=== PATIENT | male | born 1965 | race Caucasian/White ===

== ENCOUNTER 2016-06-14 11:17 | Inpatient (IN) | payer MEDICAID, MEDICARE ==
[~2016-06-14] VITALS: Ht 188 cm; Wt 78.7 kg
[~2016-06-14 11:17] MED LIST: CYCL-181 PO; DULO60CA PO; ESTRODIAL IM; LAM100T PO; ONDA4TAB5 PO; OXY10CRT PO; PROG200C6 PO; Pantoprazole Sodium Sesquihydr PO; SPIRPOW PO
[2016-06-14 12:10] LABS: Basophils # (auto) 0.3 uL; Basophils % (auto) 1.8 % (0.0-2.0); Eosinophils # (auto) 0 uL; Hematocrit 45.4 % (41.0-53.0); Lymphocytes # (auto) 0.8 uL; Lymphocytes % (auto) 5.2 % (10.0-50.0); Mean Corpuscular Hemoglobin 30.3 pg (28.0-32.0); Mean Corpuscular Hgb Conc. 33.1 g/dL (32.0-36.0); Mean Corpuscular Volume 91.5 fL (80.0-100.0); Mean Platelet Volume 8.4 fL (7.4-10.4); Monocytes # (auto) 0.1 uL; Monocytes % (auto) 0.9 % (0.0-12.0); Neutrophils # (auto) 13.8 uL; Neutrophils % (auto) 92.1 % (37.0-80.0); Platelet Count (auto) 302 10^3/uL (140-450); Red Cell Distribution Width 14.1 % (11.6-16.0); White Blood Cell 14.9 10^3/uL (4.4-10.8)
[2016-06-14 12:31] LABS: BUN/Creatinine Ratio 17.5; Calcium 8.9 mg/dL (8.5-10.1); Potassium 4.4 mmol/L (3.5-5.1)
[2016-06-14 12:33] LABS: Bilirubin, Total 0.4 mg/dL (0.2-1.0); Total Protein 7.3 g/dL (6.4-8.2)
[2016-06-14] MEDS ORDERED: PANTOPRAZOLE SODIUM 40 MG/10 ML VIAL IV STA (12:44)
[2016-06-14] MEDS ORDERED: SODIUM CHLORIDE 0.9% 1,000 ML IVB ONE (12:44)
[2016-06-14] MEDS ORDERED: PROCHLORPERAZINE EDISYLATE 5 MG/ML 2ML VIAL IV ONE (12:45)
[2016-06-14] MEDS ORDERED: SODIUM CHLORIDE 0.9% 1,000 ML IV ONE ×2 (12:45→17:00)
[2016-06-14] MEDS ORDERED: MORPHINE SULFATE 4 MG/ML SYRG IV ONE (12:45)
[2016-06-14 12:52] LABS: Urine Bilirubin Negative (Negative); Urine Color Yellow (Yellow); Urine Glucose Normal (Normal); Urine Mucus FEW (None Seen); Urine Nitrite Negative (Negative); Urine RBC 4 /hpf (0 - 3); Urine Squamous Epithelial Cell FEW /hpf (<5); Urine Urobilinogen Normal (Negative)
[2016-06-14 13:02] LABS: Urine Blood 1+ /uL (Negative); Urine Ketone 4+ (Negative)
[2016-06-14] MEDS ORDERED: LORazepam 2MG/ML-1ML VIAL IV ONE (14:15)
[2016-06-14] MEDS ORDERED: ONDANSETRON HCL 4 MG/2 ML VIAL ONE (16:26)
[2016-06-14] MEDS ORDERED: ONDANSETRON HCL 4 MG/2 ML VIAL IV ONE (16:30)
[2016-06-14] MEDS ORDERED: metroNIDAZOLE 500MG/100ML 100 ML IV ONE (17:00)
[2016-06-14] MEDS ORDERED: NOR5T PO (18:39)
[2016-06-14] MEDS ORDERED: OLAN20TA13 PO (18:39)
[2016-06-14] MEDS ORDERED: TIZA4CAP5 PO (18:39)
[2016-06-14] MEDS ORDERED: THYR30TA PO (18:39)
[2016-06-14] MEDS ORDERED: VORT1TAB3 PO (18:39)
[2016-06-14] MEDS ORDERED: PNEUMOCOCCAL VACC POLYS 25 MCG/0.5 ML VIAL IM ONE (19:00)
[2016-06-14 19:14] VITALS: BP 118/71
[2016-06-14] MEDS ORDERED: HYDROcodone-ACET 5/325MG TAB PO PRN (19:30)
[2016-06-14] MEDS ORDERED: ONDANSETRON HCL 4 MG/2 ML VIAL IV PRN (19:30)
[2016-06-14] MEDS ORDERED: TIZANIDINE 4 MG PO PRN (19:30)
[2016-06-14] MEDS: MORPHINE SULF INJ 2 MG/ML SYRINGE 1ML IV PRN (20:59)
[2016-06-14] MEDS: metroNIDAZOLE 500MG/100ML 100 ML IV SCH (21:25)
[2016-06-14] MEDS ORDERED: PATIENTS OWN MEDICATION (Duloxetine Hcl (Cymbalta) 60 MG) PO SCH (22:00)
[2016-06-14 22:12] VITALS: BP 124/72
[2016-06-15] MEDS: MORPHINE SULF INJ 2 MG/ML SYRINGE 1ML IV PRN ×6 (01:12→22:46)
[2016-06-15] MEDS: PROCHLORPERAZINE EDISYLATE 5 MG/ML 2ML VIAL IV PRN ×4 (03:02→20:13)
[2016-06-15 05:12] VITALS: BP 99/58
[2016-06-15 05:32] LABS: Basophils # (auto) 0 uL; Basophils % (auto) 0.1 % (0.0-2.0); Eosinophils # (auto) 0 uL; Eosinophils % (auto) 0.3 % (0.0-7.0); Hematocrit 44.6 % (41.0-53.0); Hemoglobin 14.8 g/dL (13.5-17.5); Lymphocytes # (auto) 1.5 uL; Lymphocytes % (auto) 8.7 % (10.0-50.0); Mean Corpuscular Hemoglobin 30.5 pg (28.0-32.0); Mean Corpuscular Hgb Conc. 33.2 g/dL (32.0-36.0); Mean Corpuscular Volume 91.9 fL (80.0-100.0); Monocytes # (auto) 0.5 uL; Monocytes % (auto) 2.9 % (0.0-12.0); Neutrophils # (auto) 15.4 uL; Platelet Count (auto) 304 10^3/uL (140-450); Red Cell Distribution Width 14.2 % (11.6-16.0); White Blood Cell 17.5 10^3/uL (4.4-10.8)
[2016-06-15 05:44] LABS: Calcium 8.7 mg/dL (8.5-10.1); Potassium 3.5 mmol/L (3.5-5.1)
[2016-06-15] MEDS: metroNIDAZOLE 500MG/100ML 100 ML IV SCH ×3 (05:52→22:49)
[2016-06-15 09:17] VITALS: BP 100/56
[2016-06-15] MEDS: THYROID 60 MG TAB PO SCH (09:21)
[2016-06-15] MEDS ORDERED: THYROID PO SCH (10:00)
[2016-06-15] MEDS ORDERED: SPIRONOLACTONE 25 MG TAB PO SCH (10:00)
[2016-06-15] MEDS ORDERED: ESTRADIOL 6 MG PO SCH (10:00)
[2016-06-15] MEDS ORDERED: DULoxetine HCL 30 MG CAP PO SCH (10:00)
[2016-06-15] MEDS ORDERED: PANTOPRAZOLE SODIUM 40 MG/10 ML VIAL IV SCH (10:00)
[2016-06-15] MEDS ORDERED: lamoTRIgine 100 MG TAB PO SCH (10:00)
[2016-06-15] MEDS ORDERED: SPIRONOLACTONE 200 MG PO SCH (10:00)
[2016-06-15] MEDS ORDERED: Progesterone Micronized 200 MG PO SCH (10:00)
[2016-06-15] MEDS: VORTIOXETINE 20 MG PO SCH (12:15)
[2016-06-15 12:40] VITALS: BP_SYST 115; BP_SYST 120; BP_DIAS 66; BP_DIAS 70
[2016-06-15] MEDS ORDERED: KEP500T PO (14:25)
[2016-06-15] MEDS ORDERED: ONDA8TAB6 PO (14:25)
[2016-06-15] MEDS ORDERED: cefTRIAXone 1GM/50ML D5W 50 ML IV ONE (15:30)
[2016-06-15] MEDS ORDERED: HYDROcodone-ACET 10/325MG TAB PO PRN (17:00)
[2016-06-15] MEDS ORDERED: Tizanidine Hydrochloride (Zanaflex) 4mg PO PRN (17:00)
[2016-06-15 17:27] VITALS: BP 112/62
[2016-06-15] MEDS ORDERED: OLANZAPINE PO SCH (18:00)
[2016-06-15 22:00] VITALS: BP 105/65
[2016-06-15] MEDS ORDERED: OLANZapine 5 MG TAB PO SCH (22:00)
[2016-06-15] MEDS ORDERED: LEVETIRACETAM 500 MG TAB PO SCH (22:00)
[2016-06-15] MEDS ORDERED: PROGESTERONE MICRONIZED 200 MG PO SCH (22:00)
[2016-06-15] MEDS: SPIRONOLACTONE 25 MG TAB PO SCH (23:07)
[2016-06-16] MEDS: PROCHLORPERAZINE EDISYLATE 5 MG/ML 2ML VIAL IV PRN ×3 (01:56→13:50)
[2016-06-16] MEDS: MORPHINE SULF INJ 2 MG/ML SYRINGE 1ML IV PRN ×3 (04:50→13:50)
[2016-06-16] MEDS: metroNIDAZOLE 500MG/100ML 100 ML IV SCH (05:16)
[2016-06-16 05:30] VITALS: BP 102/69
[2016-06-16 06:29] LABS: Basophils # (auto) 0 uL; Basophils % (auto) 0.2 % (0.0-2.0); Eosinophils # (auto) 0 uL; Eosinophils % (auto) 0.1 % (0.0-7.0); Hematocrit 39.7 % (41.0-53.0); Hemoglobin 13.3 g/dL (13.5-17.5); Lymphocytes # (auto) 1.6 uL; Lymphocytes % (auto) 8.9 % (10.0-50.0); Mean Corpuscular Hemoglobin 30.5 pg (28.0-32.0); Mean Corpuscular Hgb Conc. 33.4 g/dL (32.0-36.0); Mean Corpuscular Volume 91.2 fL (80.0-100.0); Mean Platelet Volume 8.8 fL (7.4-10.4); Monocytes # (auto) 0.8 uL; Monocytes % (auto) 4.7 % (0.0-12.0); Neutrophils # (auto) 15.1 uL; Neutrophils % (auto) 86.1 % (37.0-80.0); Platelet Count (auto) 250 10^3/uL (140-450); White Blood Cell 17.5 10^3/uL (4.4-10.8)
[2016-06-16 06:53] LABS: BUN/Creatinine Ratio 15.4; Calcium 8.4 mg/dL (8.5-10.1); Potassium 3.5 mmol/L (3.5-5.1)
[2016-06-16 09:00] VITALS: BP 131/74
[2016-06-16] MEDS ORDERED: cefTRIAXone 1GM/50ML D5W 50 ML IV SCH (09:00)
[2016-06-16] MEDS ORDERED: DULoxetine HCL 30 MG CAP PO SCH (10:00)
[2016-06-16] MEDS ORDERED: ESTRADIOL 4 MG PO SCH (10:00)
[2016-06-16] MEDS ORDERED: OLANZapine 5 MG TAB PO SCH (10:00)
[2016-06-16] MEDS: THYROID 60 MG TAB PO SCH (10:27)
[2016-06-16] MEDS: SPIRONOLACTONE 25 MG TAB PO SCH (10:27)
[2016-06-16] MEDS: VORTIOXETINE 20 MG PO SCH (10:28)
[2016-06-16] MEDS ORDERED: PANTOPRAZOLE SODIUM 40 MG/10 ML VIAL IV SCH (10:30)
[2016-06-16 13:00] VITALS: BP 97/67
[2016-06-20] MEDS ORDERED: ESTRODIOL IM SCH (10:00)
== END 2016-06-16 16:22 | disposition home or self-care (01) | DRG 251 ==
LOC: ER 11:20 → TELE 11:21 → SUATTDRO 16:47 → WEST WING 17:39 → TELE-WESTW 17:45 → WEST WING 22:09
PROVIDERS: ADMIT Internal Medicine; ATTEND Internal Medicine
DX: R10.9 Unspecified abdominal pain (principal); K90.0 Celiac disease; D72.829 Elevated white blood cell count, unspecified; E78.5 Hyperlipidemia, unspecified; F31.9 Bipolar disorder, unspecified; E03.9 Hypothyroidism, unspecified; F17.210 Nicotine dependence, cigarettes, uncomplicated; F41.9 Anxiety disorder, unspecified; G40.909 Epilepsy, unspecified, not intractable, without status epilepticus; G43.A1 Cyclical vomiting, in migraine, intractable; Z98.1 Arthrodesis status; Z87.442 Personal history of urinary calculi; Z88.5 Allergy status to narcotic agent; Z88.8 Allergy status to other drugs, medicaments and biological substances; Z82.49 Family history of ischemic heart disease and other diseases of the circulatory system; Z90.89 Acquired absence of other organs
CPT/HCPCS: 36415; 74176; 80048; 80053; 81001; 82150; 83690; 83735; 85025; 94761; 96361; 96374; 96375; C9113; J0696; J2405; J3490

== ENCOUNTER 2017-01-04 13:55 | Inpatient (IN) | payer OTHER, MEDICAID ==
[~2017-01-04] VITALS: Ht 188 cm; Wt 76.7 kg
[~2017-01-04 13:55] MED LIST changes: -CYCL-181 PO; +HYDR-4683 PO; +KEP500T PO; -LAM100T PO; +OLAN20TA13 PO; -OXY10CRT PO; +THYR30TA PO; +TIZA4CAP5 PO; +VORT1TAB3 PO
[2017-01-04] MEDS ORDERED: PANTOPRAZOLE 40 MG/10 ML VIAL IV STA (15:10)
[2017-01-04] MEDS ORDERED: SODIUM CHLORIDE 0.9% 1,000 ML IVB ONE (15:10)
[2017-01-04] MEDS ORDERED: ONDANSETRON HCL 4 MG/2 ML VIAL IV ONE (15:15)
[2017-01-04] MEDS ORDERED: HYDROmorphone HCL 2 MG/ML VL IV ONE (15:15)
[2017-01-04 16:03] LABS: Albumin 4.3 g/dL (3.4-5.0); Bilirubin, Total 0.5 mg/dL (0.2-1.0); Calcium 9.5 mg/dL (8.5-10.1); Potassium 4.1 mmol/L (3.5-5.1); Total Protein 8.1 g/dL (6.4-8.2)
[2017-01-04 17:34] LABS: Hematocrit 46.3 % (41.0-53.0); Hemoglobin 15.6 g/dL (13.5-17.5); Mean Corpuscular Hgb Conc. 33.7 g/dL (32.0-36.0); Platelet Count (auto) 243 10^3/uL (140-450); Red Blood Cells 4.88 10^6/uL (4.5-5.90); Red Cell Distribution Width 14.2 % (11.8-14.3); White Blood Cell 14.3 10^3/uL (4.4-10.8)
[2017-01-04 17:36] LABS: Band Neutrophils % (manual) 0; Basophils % (manual) 0 (0.0-2.0); Blast Cells 0; Eosinophils % (manual) 0 (0-7); Metamyelocytes % 0; Myelocytes % 0; Promyelocytes % 0; Reactive Lymphocytes 0
[2017-01-04 18:08] LABS: Lymphocytes % (manual) 6 (10.0-50.0); Monocytes % (manual) 1 (0-12)
[2017-01-04] MEDS ORDERED: ACETAMINOPHEN 325 MG TAB PO PRN (19:15)
[2017-01-04] MEDS ORDERED: NITROGLYCERIN 0.4 MG SL TAB SL PRN (19:15)
[2017-01-04] MEDS ORDERED: MORPHINE SULFATE 10 MG/ML INJ 1ML SDV IV PRN ×2 (19:15)
[2017-01-04] MEDS ORDERED: TEMAZEPAM 15 MG CAP PO PRN (19:15)
[2017-01-04] MEDS ORDERED: DOCUSATE SOD 100 MG CAP PO PRN (19:15)
[2017-01-04] MEDS ORDERED: SODIUM CHLORIDE 0.9% 1,000 ML IV ONE (19:30)
[2017-01-04] MEDS ORDERED: LORazepam 2MG/ML-1ML VIAL IV PRN (19:30)
[2017-01-04] MEDS ORDERED: PATIENTS OWN MEDICATION IM SCH (19:30)
[2017-01-04] MEDS ORDERED: cefTRIAXone 1GM/50ML D5W 50 ML IV ONE (19:45)
[2017-01-04] MEDS ORDERED: DEXTROSE (50%) 50ML SYRG IV PRN (19:45)
[2017-01-04 21:55] VITALS: BP_SYST 130; BP_SYST 97; BP_DIAS 62; BP_DIAS 91
[2017-01-04] MEDS ORDERED: ZANAFLEX 4 MG PO PRN (22:00)
[2017-01-04] MEDS ORDERED: LEVETIRACETAM 500 MG TAB PO SCH (22:00)
[2017-01-04] MEDS: PROGESTERONE 200 MG PO SCH (22:00)
[2017-01-04] MEDS: ABILIFY 5MG PO SCH (22:00)
[2017-01-04] MEDS: InsuLIN REG 1unit/0.01ml Soln (100units/ml) SC SCH (22:00)
[2017-01-04] MEDS: ACCU-CHEK COMFORT CURVE STRIP VI SCH (22:00)
[2017-01-04] MEDS: FAMOTIDINE (10MG/ML) 2ML VL IV SCH (22:50)
[2017-01-04] MEDS: ONDANSETRON HCL 4 MG/2 ML VIAL IV PRN (22:50)
[2017-01-04] MEDS: metroNIDAZOLE 500MG/100ML 100 ML IV SCH (22:50)
[2017-01-04] MEDS: SUCRALFATE 1 GM TAB PO SCH (22:51)
[2017-01-04] MEDS: SODIUM CHLORIDE 0.9% 1,000 ML IV SCH (23:01)
[2017-01-05] MEDS: SODIUM CHLORIDE 0.9% 1,000 ML IV SCH ×3 (02:19→20:24)
[2017-01-05] MEDS: ACCU-CHEK COMFORT CURVE STRIP VI SCH ×2 (05:14→11:44)
[2017-01-05] MEDS: SPIRONOLACTONE 25 MG TAB PO SCH ×2 (05:14→17:04)
[2017-01-05] MEDS: metroNIDAZOLE 500MG/100ML 100 ML IV SCH ×2 (05:14→13:45)
[2017-01-05] MEDS: SUCRALFATE 1 GM TAB PO SCH ×4 (05:14→22:03)
[2017-01-05] MEDS: InsuLIN REG 1unit/0.01ml Soln (100units/ml) SC SCH ×2 (05:14→11:30)
[2017-01-05 05:30] VITALS: BP 93/47
[2017-01-05] MEDS: ONDANSETRON HCL 4 MG/2 ML VIAL IV PRN ×2 (05:46→20:35)
[2017-01-05] MEDS: HYDROcodone-ACET 5/325MG TAB PO PRN ×3 (05:47→20:36)
[2017-01-05 05:52] LABS: Basophils # (auto) 0.1 uL; Basophils % (auto) 0.8 % (0.0-2.0); Eosinophils # (auto) 0 uL; Eosinophils % (auto) 0.5 % (0.0-7.0); Hematocrit 38.1 % (41.0-53.0); Hemoglobin 12.8 g/dL (13.5-17.5); Lymphocytes # (auto) 2.4 uL; Lymphocytes % (auto) 26.5 % (10.0-50.0); Mean Corpuscular Hgb Conc. 33.7 g/dL (32.0-36.0); Mean Corpuscular Volume 94.7 fL (80.0-100.0); Monocytes # (auto) 0.5 uL; Monocytes % (auto) 5.9 % (0.0-12.0); Neutrophils % (auto) 66.3 % (37.0-80.0); Nucleated Red Blood Cells % 0.1 %; Platelet Count (auto) 192 10^3/uL (140-450); Red Blood Cells 4.02 10^6/uL (4.5-5.90); Red Cell Distribution Width 14.6 % (11.8-14.3)
[2017-01-05 06:22] LABS: Potassium 3.8 mmol/L (3.5-5.1)
[2017-01-05 06:35] LABS: Albumin 3.1 g/dL (3.4-5.0); BUN/Creatinine Ratio 18.6; Calcium 7.9 mg/dL (8.5-10.1)
[2017-01-05 06:38] LABS: Bilirubin, Total 0.4 mg/dL (0.2-1.0); Total Protein 5.7 g/dL (6.4-8.2)
[2017-01-05 06:48] LABS: Urine Bacteria NONE SEEN /hpf (None Seen); Urine Blood Negative /uL (Negative); Urine Mucus FEW (None Seen); Urine Specific Gravity 1.028 (1.001-1.035); Urine WBC 1 /hpf (0 - 3)
[2017-01-05 08:00] VITALS: BP 93/54
[2017-01-05] MEDS: FAMOTIDINE (10MG/ML) 2ML VL IV SCH (08:51)
[2017-01-05] MEDS: THYROID 60 MG TAB PO SCH (08:51)
[2017-01-05] MEDS: DULoxetine HCL 30 MG CAP PO SCH (08:52)
[2017-01-05] MEDS: ABILIFY 5MG PO SCH (08:52)
[2017-01-05] MEDS: MULTIPLE VITAMIN TAB PO SCH (08:52)
[2017-01-05] MEDS ORDERED: cefTRIAXone 1GM/50ML D5W 50 ML IV SCH (09:00)
[2017-01-05] MEDS ORDERED: PANTOPRAZOLE 40 MG/10 ML VIAL IV SCH (10:00)
[2017-01-05] MEDS ORDERED: MORPHINE SULFATE 10 MG/ML INJ 1ML SDV IV PRN (14:45)
[2017-01-05 15:02] VITALS: BP 105/72
[2017-01-05] MEDS ORDERED: ARIP1TAB PO (16:20)
[2017-01-05] MEDS ORDERED: TEMA30CA PO (16:20)
[2017-01-05] MEDS ORDERED: VARE1TAB PO (16:20)
[2017-01-05] MEDS ORDERED: DIAZ10TA3 PO (16:20)
[2017-01-05] MEDS ORDERED: LORazepam 2MG/ML-1ML VIAL IV PRN (17:15)
[2017-01-05 17:38] VITALS: BP_SYST 103; BP_SYST 143; BP_DIAS 61; BP_DIAS 66
[2017-01-05 22:00] VITALS: BP 96/60
[2017-01-05] MEDS: CHANTIX 1MG PO SCH (22:00)
[2017-01-05] MEDS: PROGESTERONE 200 MG PO SCH (22:00)
[2017-01-05] MEDS: LEVETIRACETAM 500 MG TAB PO SCH (22:04)
[2017-01-05] MEDS: PANTOPRAZOLE 40 MG TAB PO SCH (22:04)
[2017-01-06] MEDS: SODIUM CHLORIDE 0.9% 1,000 ML IV SCH (04:37)
[2017-01-06 05:00] VITALS: BP 91/60
[2017-01-06] MEDS: SPIRONOLACTONE 25 MG TAB PO SCH (05:47)
[2017-01-06] MEDS: SUCRALFATE 1 GM TAB PO SCH ×2 (06:45→11:52)
[2017-01-06] MEDS: HYDROcodone-ACET 5/325MG TAB PO PRN ×2 (06:51→14:27)
[2017-01-06 07:50] VITALS: BP 105/65
[2017-01-06 08:29] VITALS: BP 97/59
[2017-01-06] MEDS: PANTOPRAZOLE 40 MG TAB PO SCH (08:51)
[2017-01-06] MEDS: THYROID 60 MG TAB PO SCH (08:51)
[2017-01-06] MEDS: MULTIPLE VITAMIN TAB PO SCH (08:51)
[2017-01-06] MEDS: LEVETIRACETAM 500 MG TAB PO SCH (08:51)
[2017-01-06] MEDS: DULoxetine HCL 30 MG CAP PO SCH (08:51)
[2017-01-06] MEDS: CHANTIX 1MG PO SCH (10:00)
[2017-01-06] MEDS ORDERED: LORazepam 0.5 MG TAB PO PRN (10:00)
[2017-01-06] MEDS ORDERED: KEP500T PO (10:57)
[2017-01-06 13:00] VITALS: BP 86/57
[2017-01-06 17:00] VITALS: BP 93/60
[2017-01-06 17:39] VITALS: BP 129/74
== END 2017-01-06 18:49 | disposition home or self-care (01) | DRG 866 ==
LOC: EDBD 13:55 → ER 13:55 → EDSEX 13:55 → TELE 13:56 → TELE-EAST 21:25 → EAST 21:25 → TELE-EAST 01-05 16:34
PROVIDERS: ADMIT Internal Medicine; ATTEND Internal Medicine
DX: B34.9 Viral infection, unspecified (principal); E03.9 Hypothyroidism, unspecified; G40.89 Other seizures; K29.70 Gastritis, unspecified, without bleeding; E78.5 Hyperlipidemia, unspecified; E86.0 Dehydration; F41.9 Anxiety disorder, unspecified; N18.2 Chronic kidney disease, stage 2 (mild); F12.90 Cannabis use, unspecified, uncomplicated; G89.29 Other chronic pain; M54.5 Low back pain; F31.9 Bipolar disorder, unspecified; F17.210 Nicotine dependence, cigarettes, uncomplicated; Z79.899 Other long term (current) drug therapy; Z87.442 Personal history of urinary calculi; Z82.49 Family history of ischemic heart disease and other diseases of the circulatory system; Z98.1 Arthrodesis status; Z88.8 Allergy status to other drugs, medicaments and biological substances
CPT/HCPCS: 36415; 70551; 74176; 76705; 80053; 81001; 82150; 82962; 83036; 83605; 83690; 83735; 84443; 85007; 85025; 85027; 87040; 87086; 94761; 95819; 96361; 96374; 96375; C9113; J0696; J2405; J3490

== ENCOUNTER → 2018-01-13 | Outpatient (CLI) | payer OTHER, MEDICAID ==
[~2018-01-13] MED LIST changes: +ARIP1TAB PO; +DIAZ10TA3 PO; +TEMA30CA PO; +TIZA4CAP PO; -TIZA4CAP5 PO; +VARE1TAB PO
== END | disposition home or self-care (01) ==
LOC: RT 08:39
PROVIDERS: ATTEND Internal Medicine Pulmonary Disease
DX: J43.9 Emphysema, unspecified (principal)
CPT/HCPCS: 94010; 94640

== ENCOUNTER 2021-10-09 03:15 | Inpatient (IN) | payer OTHER, MEDICAID ==
[~2021-10-09] VITALS: Ht 188 cm; Wt 94.7 kg
[~2021-10-09 03:15] MED LIST changes: +ARIP10TA30 PO; -ARIP1TAB PO; -HYDR-4683 PO; +HYDR-4833 PO; +OLAN20TA PO; -OLAN20TA13 PO; +ONDA-144 PO; -ONDA4TAB5 PO; +PROG1CAP2 PO; -PROG200C6 PO
[2021-10-09 04:24] LABS: Basophils # (auto) 0.1 10 ^3/uL (0-0.2); Basophils % (auto) 0.9 % (0.0-2.0); Eosinophils # (auto) 0 10 ^3/uL (0-0.8); Eosinophils % (auto) 0.1 % (0.0-7.0); Hematocrit 43.5 % (41.0-53.0); Hemoglobin 14.4 g/dL (13.5-17.5); Lymphocytes # (auto) 1.9 10 ^3/uL (0.4-5.4); Lymphocytes % (auto) 14.1 % (10.0-50.0); Mean Corpuscular Hemoglobin 28.5 pg (28.0-32.0); Mean Corpuscular Hgb Conc. 33.2 g/dL (32.0-36.0); Monocytes # (auto) 0.7 10 ^3/uL (0-1.3); Monocytes % (auto) 5.4 % (0.0-12.0); Neutrophils # (auto) 10.5 10 ^3/uL (1.6-8.6); Neutrophils % (auto) 79.5 % (37.0-80.0); Red Blood Cells 5.05 10^6/uL (4.5-5.90); Red Cell Distribution Width 14.8 % (11.8-14.3); White Blood Cell 13.2 10^3/uL (4.4-10.8)
[2021-10-09 04:40] LABS: Albumin 4.1 g/dL (3.4-5.0); BUN/Creatinine Ratio 20.6; Calcium 9.2 mg/dL (8.5-10.1)
[2021-10-09 04:42] LABS: Bilirubin, Total 0.5 mg/dL (0.2-1.0); Total Protein 7.8 g/dL (6.4-8.2)
[2021-10-09] MEDS ORDERED: ONDANSETRON HCL 4 MG/2 ML VIAL IV ONE ×2 (07:45→11:15)
[2021-10-09] MEDS ORDERED: SODIUM CHLORIDE 0.9% 1,000 ML IVB ONE (07:45)
[2021-10-09] MEDS ORDERED: PANTOPRAZOLE 40 MG/10 ML VIAL INJ IV ONE ×2 (07:45→13:30)
[2021-10-09] MEDS ORDERED: POTASSIUM CHL 20 Meq TABLET PO ONE (09:00)
[2021-10-09] MEDS ORDERED: POTASSIUM CHL 20MEQ/100ML 100 ML IV ONE (09:00)
[2021-10-09] MEDS ORDERED: MORPHINE SULFATE 4 MG/ML SYR/VIAL IV ONE (11:15)
[2021-10-09 12:22] LABS: Urine Bacteria FEW /hpf (None Seen); Urine Blood 2+ /uL (Negative); Urine Mucus FEW (None Seen); Urine Specific Gravity 1.028 (1.001-1.035); Urine WBC 1 /hpf (0 - 3)
[2021-10-09 12:35] LABS: Alcohol, Urine < 3.0 mg/dL (0-10); Amphetamine Screen, Urine NEGATIVE (NEGATIVE); Barbiturate Scree,Urine NEGATIVE (NEGATIVE); Benzodiazephine Screen, Urine NEGATIVE (NEGATIVE); Cannabinoid Screen, Urine POSITIVE (NEGATIVE); Cocaine Screen, Urine NEGATIVE (NEGATIVE); Opiate Scree,Urine POSITIVE (NEGATIVE); Phencyclidine Screen, Urine NEGATIVE (NEGATIVE)
[2021-10-09] MEDS ORDERED: cefTRIAXone 1GM/50ML D5W 50 ML IV ONE (13:30)
[2021-10-09 13:51] LABS: Magnesium 2.4 mg/dL (1.6-2.6)
[2021-10-09 14:35] LABS: Calcium 8.2 mg/dL (8.5-10.1); Potassium 3.6 mmol/L (3.5-5.1)
[2021-10-09] MEDS: SODIUM CHLORIDE 0.9% 1,000 ML IV SCH ×2 (14:46→23:56)
[2021-10-09] MEDS: ONDANSETRON HCL 4 MG/2 ML VIAL IV PRN (18:05)
[2021-10-09] MEDS ORDERED: levETIRAcetam 500 MG/5ML INJ IV ONE ×2 (23:18→23:21)
[2021-10-09] MEDS: MORPHINE SULFATE INJ 2 MG/ml SYRG IV PRN (23:45)
[2021-10-10] MEDS: ONDANSETRON HCL 4 MG/2 ML VIAL IV PRN ×2 (05:26→11:58)
[2021-10-10] MEDS: MORPHINE SULFATE INJ 2 MG/ml SYRG IV PRN ×2 (05:32→11:59)
[2021-10-10] MEDS: SODIUM CHLORIDE 0.9% 1,000 ML IV SCH ×2 (06:37→22:18)
[2021-10-10 07:29] LABS: Basophils # (auto) 0.1 10 ^3/uL (0-0.2); Basophils % (auto) 1.5 % (0.0-2.0); Eosinophils # (auto) 0.1 10 ^3/uL (0-0.8); Eosinophils % (auto) 0.9 % (0.0-7.0); Hematocrit 38.1 % (41.0-53.0); Hemoglobin 12.6 g/dL (13.5-17.5); Lymphocytes # (auto) 1.7 10 ^3/uL (0.4-5.4); Lymphocytes % (auto) 26.3 % (10.0-50.0); Mean Corpuscular Hemoglobin 28.9 pg (28.0-32.0); Mean Corpuscular Hgb Conc. 33.2 g/dL (32.0-36.0); Monocytes # (auto) 0.5 10 ^3/uL (0-1.3); Monocytes % (auto) 7.2 % (0.0-12.0); Neutrophils # (auto) 4.1 10 ^3/uL (1.6-8.6); Neutrophils % (auto) 64.1 % (37.0-80.0); Red Blood Cells 4.38 10^6/uL (4.5-5.90); Red Cell Distribution Width 14.7 % (11.8-14.3); White Blood Cell 6.4 10^3/uL (4.4-10.8)
[2021-10-10 07:49] LABS: Albumin 3.3 g/dL (3.4-5.0); Calcium 8.3 mg/dL (8.5-10.1); Potassium 3.8 mmol/L (3.5-5.1)
[2021-10-10 07:54] LABS: BUN/Creatinine Ratio 15.2; Bilirubin, Total 0.5 mg/dL (0.2-1.0); Total Protein 6.2 g/dL (6.4-8.2)
[2021-10-10] MEDS: NICOTINE 7MG/24HR TOPICAL PATCH TD SCH (10:00)
[2021-10-10] MEDS: PANTOPRAZOLE 40 MG/10 ML VIAL INJ IV SCH (10:37)
[2021-10-10] MEDS: cefTRIAXone 1GM/50ML D5W 50 ML IV SCH (10:37)
[2021-10-10] MEDS: ENOXAPARIN SOD 40 MG/0.4 ML SYRINGE SC SCH (10:38)
[2021-10-10] MEDS ORDERED: HYDROcodone-ACET 10/325MG TAB PO PRN (12:15)
[2021-10-10] MEDS ORDERED: GABA300C10 PO (21:36)
[2021-10-10] MEDS ORDERED: TRAZ1TAB12 PO (21:36)
[2021-10-10] MEDS ORDERED: ARIP10TA PO (21:36)
[2021-10-10 22:00] VITALS: BP 108/77
[2021-10-10] MEDS ORDERED: BACL10TA PO (22:23)
[2021-10-10] MEDS ORDERED: BACLOFEN 10 MG TAB PO SCH (23:52)
[2021-10-11] MEDS ORDERED: GABAPENTIN 300 MG CAP PO ONE
[2021-10-11] MEDS ORDERED: traZODone HCL 50 MG TAB PO ONE
[2021-10-11] MEDS ORDERED: DULoxetine HCL 30 MG CAP PO ONE
[2021-10-11] MEDS ORDERED: BACLOFEN 10 MG TAB PO ONE
[2021-10-11] MEDS: SODIUM CHLORIDE 0.9% 1,000 ML IV SCH ×2 (00:20→10:27)
[2021-10-11 05:00] VITALS: BP 106/78
[2021-10-11] MEDS: GABAPENTIN 300 MG CAP PO SCH ×2 (06:44→10:29)
[2021-10-11 09:00] VITALS: BP 118/79
[2021-10-11] MEDS: NICOTINE 7MG/24HR TOPICAL PATCH TD SCH (10:00)
[2021-10-11] MEDS ORDERED: BACLOFEN 10 MG TAB PO SCH (10:00)
[2021-10-11] MEDS: cefTRIAXone 1GM/50ML D5W 50 ML IV SCH (10:27)
[2021-10-11] MEDS: ENOXAPARIN SOD 40 MG/0.4 ML SYRINGE SC SCH (10:28)
[2021-10-11] MEDS: PANTOPRAZOLE 40 MG/10 ML VIAL INJ IV SCH (10:28)
[2021-10-11] MEDS: ONDANSETRON HCL 4 MG/2 ML VIAL IV PRN (10:44)
[2021-10-11] MEDS: MORPHINE SULFATE INJ 2 MG/ml SYRG IV PRN (10:44)
[2021-10-11 17:18] VITALS: BP 126/77
[2021-10-11] MEDS ORDERED: DULoxetine HCL 30 MG CAP PO SCH (22:00)
[2021-10-11] MEDS ORDERED: traZODone HCL 50 MG TAB PO SCH (22:00)
== END 2021-10-11 16:20 | disposition home or self-care (01) | DRG 392 ==
LOC: EDSEX 03:15 → ER 03:15 → EDBD 03:15 → OVERFLOW 13:24 → CENTRAL 10-10 16:07
PROVIDERS: ADMIT Registered Nurse; ATTEND Internal Medicine
DX: K52.9 Noninfective gastroenteritis and colitis, unspecified (principal); N39.0 Urinary tract infection, site not specified; K29.70 Gastritis, unspecified, without bleeding; E78.5 Hyperlipidemia, unspecified; E86.0 Dehydration; E03.9 Hypothyroidism, unspecified; R82.4 Acetonuria; R31.9 Hematuria, unspecified; E87.6 Hypokalemia; F17.210 Nicotine dependence, cigarettes, uncomplicated; F41.9 Anxiety disorder, unspecified; G89.29 Other chronic pain; Z20.822 Contact with and (suspected) exposure to COVID-19; I10 Essential (primary) hypertension; J44.9 Chronic obstructive pulmonary disease, unspecified; K44.9 Diaphragmatic hernia without obstruction or gangrene; K90.0 Celiac disease; R56.9 Unspecified convulsions; Z82.49 Family history of ischemic heart disease and other diseases of the circulatory system; Z87.442 Personal history of urinary calculi; Z88.8 Allergy status to other drugs, medicaments and biological substances
CPT/HCPCS: 36415; 74176; 80048; 80053; 80061; 80307; 81001; 82542; 83036; 83735; 85025; 87086; 96361; 96365; 96375; 96376; C9113; G0378; J0696; J2405; J3480; J7060

== ENCOUNTER 2022-05-09 09:23 | Emergency (ER) | payer OTHER, MEDICAID ==
[~2022-05-09 09:23] MED LIST changes: +ARIP10TA PO; -ARIP10TA30 PO; +BACL10TA PO; -DIAZ10TA3 PO; +GABA300C10 PO; -OLAN20TA PO; -SPIRPOW PO; -TEMA30CA PO; -THYR30TA PO; -TIZA4CAP PO; +TRAZ1TAB12 PO; -VARE1TAB PO; -VORT1TAB3 PO
[2022-05-09 09:52] LABS: Basophils # (auto) 0.1 10 ^3/uL (0-0.2); Basophils % (auto) 0.9 % (0.0-2.0); Eosinophils # (auto) 0 10 ^3/uL (0-0.8); Eosinophils % (auto) 0.1 % (0.0-7.0); Hematocrit 46.7 % (41.0-53.0); Hemoglobin 15.7 g/dL (13.5-17.5); Lymphocytes # (auto) 1.4 10 ^3/uL (0.4-5.4); Lymphocytes % (auto) 11.7 % (10.0-50.0); Mean Corpuscular Hemoglobin 29.1 pg (28.0-32.0); Mean Corpuscular Hgb Conc. 33.6 g/dL (32.0-36.0); Mean Corpuscular Volume 86.7 fL (80.0-100.0); Monocytes # (auto) 0.9 10 ^3/uL (0-1.3); Monocytes % (auto) 7.7 % (0.0-12.0); Neutrophils # (auto) 9.7 10 ^3/uL (1.6-8.6); Neutrophils % (auto) 79.6 % (37.0-80.0); Red Blood Cells 5.38 10^6/uL (4.5-5.90); Red Cell Distribution Width 13.9 % (11.8-14.3); White Blood Cell 12.1 10^3/uL (4.4-10.8)
[2022-05-09 10:22] LABS: Calcium 9.3 mg/dL (8.5-10.1); Potassium 3.5 mmol/L (3.5-5.1)
[2022-05-09 10:25] LABS: BUN/Creatinine Ratio 17.5; Bilirubin, Total 0.7 mg/dL (0.2-1.0); Total Protein 7.4 g/dL (6.4-8.2)
[2022-05-09] MEDS ORDERED: SODIUM CHLORIDE 0.9% 1,000 ML IV ONE (11:00)
[2022-05-09] MEDS ORDERED: SODIUM CHLORIDE 0.9% 1,000 ML IVB ONE (11:00)
[2022-05-09] MEDS ORDERED: PANTOPRAZOLE 40mg/50ML NS AE 50 ML IV ONE (11:00)
[2022-05-09 13:24] VITALS: BP 122/72
== END 2022-05-09 13:26 | disposition home or self-care (01) ==
LOC: EDBD 09:23 → EDSEX 09:23 → ER 09:23
DX: K29.70 Gastritis, unspecified, without bleeding (principal); J44.9 Chronic obstructive pulmonary disease, unspecified; E78.5 Hyperlipidemia, unspecified; F17.210 Nicotine dependence, cigarettes, uncomplicated; Z90.89 Acquired absence of other organs; Z79.899 Other long term (current) drug therapy; Z88.8 Allergy status to other drugs, medicaments and biological substances
CPT/HCPCS: 36415; 74176; 80053; 83690; 84484; 85025; 96365; 99285; J7030

== ENCOUNTER 2023-07-05 16:56 | Inpatient (IN) | payer OTHER, MEDICAID ==
[~2023-07-05] VITALS: Ht 188 cm; Wt 91.7 kg
[~2023-07-05 16:56] MED LIST changes: -DULO60CA PO; +DULO60CA41 PO; +GABA-1250 PO; -GABA300C10 PO; -PROG1CAP2 PO; +PROG200C21 PO
[2023-07-05 22:06] LABS: Basophils # (auto) 0.2 10 ^3/uL (0-0.2); Basophils % (auto) 1.5 % (0.0-2.0); Eosinophils # (auto) 0.1 10 ^3/uL (0-0.8); Eosinophils % (auto) 0.7 % (0.0-7.0); Hematocrit 43.1 % (36.0-46.0); Hemoglobin 14.2 g/dL (12.2-16.2); Lymphocytes % (auto) 15.3 % (10.0-50.0); Mean Corpuscular Hemoglobin 28.3 pg (28.0-32.0); Mean Corpuscular Hgb Conc. 32.9 g/dL (32.0-36.0); Mean Corpuscular Volume 85.9 fL (80.0-100.0); Monocytes # (auto) 0.5 10 ^3/uL (0-1.3); Monocytes % (auto) 3.8 % (0.0-12.0); Neutrophils # (auto) 10.2 10 ^3/uL (1.6-8.6); Neutrophils % (auto) 78.7 % (37.0-80.0); Red Blood Cells 5.01 10^6/uL (4.0-5.20); White Blood Cell 12.9 10^3/uL (4.4-10.8)
[2023-07-05 22:37] LABS: Alanine Aminotransferase 13 U/L (7-40); Albumin 4.7 g/dL (3.2-4.8); Alkaline Phosphatase 80 U/L (46-116); Anion Gap 6 (5-15); Aspartate Aminotransferase 22 U/L (13-40); BUN/Creatinine Ratio 5.9 (10.0-20.0); Bilirubin, Total 0.3 mg/dL (0.2-1.0); Blood Urea Nitrogen 7 mg/dL (9-23); Calcium 10.2 mg/dL (8.5-10.1); Carbon Dioxide 28 mmol/L (20-30); Chloride 104 mmol/L (98-107); Glucose 115 mg/dL (74-106); Potassium 3.9 mmol/L (3.5-5.1); Sodium 138 mmol/L (136-145); Total Protein 7.5 g/dL (5.7-8.2)
[2023-07-05] MEDS ORDERED: ACETAMINOPHEN 325 MG TAB PO PRN (23:30)
[2023-07-05] MEDS ORDERED: TRAZODONE HCL 300 MG PO SCH (23:30)
[2023-07-05] MEDS ORDERED: HYDROcodone-ACET 5/325MG TAB PO PRN (23:30)
[2023-07-05] MEDS: SODIUM CHLORIDE 0.9% 1,000 ML IV SCH (23:30)
[2023-07-05] MEDS ORDERED: PATIENTS OWN MEDICATION (Duloxetine Hcl (Cymbalta) 60 MG) PO SCH (23:30)
[2023-07-05] MEDS ORDERED: ARIPIPRAZOLE 10 MG PO SCH (23:30)
[2023-07-05] MEDS ORDERED: NITROGLYCERIN 0.4 MG SL TAB SL PRN (23:30)
[2023-07-05] MEDS: SODIUM CHLORIDE 0.9% 1,000 ML IV ONE (23:30)
[2023-07-05] MEDS ORDERED: DOCUSATE SOD 100 MG CAP PO PRN (23:30)
[2023-07-05] MEDS ORDERED: MORPHINE SULFATE INJ 2 MG/ml SYRG IV PRN (23:30)
[2023-07-05 23:33] VITALS: PULSE 70; RESP 16; O2SAT 98
[2023-07-05] MEDS ORDERED: ATOR-47 PO (23:45)
[2023-07-05 23:52] VITALS: BP 124/90; PULSE 70; RESP 16; TEMP 97.8; O2SAT 98
[2023-07-05] MEDS: KETOROLAC TROMETH 30 MG/ML 1ML VIAL IM ONE (23:55)
[2023-07-06] VITALS (11 sets, daily range): BP systolic 96–152; BP diastolic 59–96; PULSE 67–90; RESP 16–21; TEMP 97.2–98.9; O2SAT 94–100
[2023-07-06] MEDS ORDERED: ALBUTEROL SULF 2.5 MG/0.5ML(0.5%) NEB SOLN NEB PRN
[2023-07-06] MEDS ORDERED: IPRATROPIUM BROM 0.5 MG/2.5ML INH SOL NEB PRN
[2023-07-06] MEDS: ONDANSETRON HCL 4 MG/2 ML VIAL IV PRN (00:26)
[2023-07-06] MEDS: MORPHINE SULFATE INJ 2 MG/ml SYRG IV PRN (00:42)
[2023-07-06] MEDS: GABAPENTIN 300 MG CAP PO SCH (06:00)
[2023-07-06 08:00] LABS: Hematocrit 42.1 % (36.0-46.0); Hemoglobin 13.6 g/dL (12.2-16.2); Mean Corpuscular Hemoglobin 27.7 pg (28.0-32.0); Mean Corpuscular Hgb Conc. 32.4 g/dL (32.0-36.0); Mean Corpuscular Volume 85.6 fL (80.0-100.0); Red Blood Cells 4.92 10^6/uL (4.0-5.20); Red Cell Distribution Width 14.5 % (11.8-14.3); White Blood Cell 13.2 10^3/uL (4.4-10.8)
[2023-07-06 08:01] LABS: Alanine Aminotransferase 12 U/L (7-40); Alkaline Phosphatase 77 U/L (46-116); Anion Gap 8 (5-15); Aspartate Aminotransferase 16 U/L (13-40); BUN/Creatinine Ratio 5.9 (10.0-20.0); Blood Urea Nitrogen 7 mg/dL (9-23); Carbon Dioxide 25 mmol/L (20-30); Chloride 106 mmol/L (98-107); Glucose 160 mg/dL (74-106); LDL Cholesterol 166 mg/dL (< 100); Sodium 139 mmol/L (136-145); Triglycerides 131 mg/dL (< 150)
[2023-07-06 08:02] LABS: Albumin 4.5 g/dL (3.2-4.8); Bilirubin, Total 0.4 mg/dL (0.2-1.0); Cholesterol 225 mg/dL (< 200); HDL Cholesterol 47 mg/dL (40-59); Total Protein 7.1 g/dL (5.7-8.2)
[2023-07-06 09:17] LABS: Basophils % (manual) 0 (0.0-2.0); Blast Cells 0; Eosinophils % (manual) 0 (0-7); Metamyelocytes % 0; Myelocytes % 0; Promyelocytes % 0; Reactive Lymphocytes 0
[2023-07-06] MEDS: PANTOPRAZOLE 40 MG TAB PO SCH (09:38)
[2023-07-06] MEDS ORDERED: PANTOPRAZOLE SODIUM SESQUIHYDR PO SCH (10:00)
[2023-07-06] MEDS ORDERED: PATIENTS OWN MEDICATION (Atorvastatin Calcium 1 TAB) PO SCH (10:00)
[2023-07-06 11:05] LABS: Band Neutrophils % (manual) 3; Lymphocytes % (manual) 5 (10.0-50.0); Monocytes % (manual) 6 (0-12); Platelet Estimate Adequate
[2023-07-06] MEDS ORDERED: MORPHINE SULFATE INJ 2 MG/ml SYRG IV PRN (12:30)
[2023-07-06] MEDS: oxyCODONE ER 10 MG TAB PO ONE (13:45)
[2023-07-06] MEDS: METOCLOPRAMIDE HCL 5MG/ml INJ 2ml VIAL IV PRN (15:40)
[2023-07-06] MEDS ORDERED: OXY10CRT PO (17:28)
[2023-07-06] MEDS: DULoxetine HCL 30 MG CAP PO SCH (21:50)
[2023-07-06] MEDS: oxyCODONE ER 10 MG TAB PO SCH (21:51)
[2023-07-06] MEDS: ATORVASTATIN 20 MG TAB PO SCH (21:51)
[2023-07-07 01:06] VITALS: BP 98/65; PULSE 89; RESP 18; TEMP 98.8; O2SAT 93
[2023-07-07 05:01] VITALS: BP 109/75; PULSE 72; RESP 18; TEMP 99.1; O2SAT 94
[2023-07-07 07:17] VITALS: O2SAT 96
[2023-07-07 08:00] VITALS: BP 107/70; PULSE 60; PULSE 75; RESP 17; TEMP 98.1; O2SAT 100
[2023-07-07 09:00] VITALS: BP 107/70; PULSE 60; RESP 17; TEMP 98.1; O2SAT 94
[2023-07-07 10:00] VITALS: O2SAT 94
== END 2023-07-07 11:55 | disposition home or self-care (01) | DRG 316 ==
LOC: ER 16:56 → EDBD 16:56 → EDSEX 16:56 → TELE 23:39 → TELE-CENTR 07-06 02:56
PROVIDERS: ADMIT Internal Medicine Geriatric Medicine; ATTEND Internal Medicine Geriatric Medicine
DX: I95.9 Hypotension, unspecified (principal); M54.50 Low back pain, unspecified; D72.829 Elevated white blood cell count, unspecified; F32.A Depression, unspecified; F41.9 Anxiety disorder, unspecified; J44.9 Chronic obstructive pulmonary disease, unspecified; E78.5 Hyperlipidemia, unspecified; G89.4 Chronic pain syndrome; G40.909 Epilepsy, unspecified, not intractable, without status epilepticus; F17.210 Nicotine dependence, cigarettes, uncomplicated; E03.9 Hypothyroidism, unspecified; Z87.442 Personal history of urinary calculi; Z79.899 Other long term (current) drug therapy
CPT/HCPCS: 36415; 70450; 71045; 80053; 80061; 83036; 83880; 84443; 84484; 85007; 85025; 85027; 85379; 96360; 96372; 97163; G0378; J1885; J2405

== ENCOUNTER 2024-09-09 15:49 | Emergency (ER) | payer OTHER, MEDICAID ==
[~2024-09-09] VITALS: Ht 188 cm; Wt 79.0 kg
[~2024-09-09 15:49] MED LIST changes: +ATOR-47 PO; -HYDR-4833 PO; +OXY10CRT PO
--- NOTE | 2024-09-09 16:58 | ED.PDOC ---
HPI Comments jose Bowen HPI: Poor Historian. Biological male Past Medical History: Past Surgical History: HPI: 58y F who presents to the ED via EMS for chief complaint of low blood pressure - pt states she woke up this AM with associated dizziness - pt states she has history of low blood pressure and states she often checks her blood pressure values - pt states this AM BP of 72/55 and pt called EMS - EMS arrived on scene and noted BP was 87/70's with Accu check of 80 and pt given 300 ml of fluids with 15g of glucose en route to the ED - pt states she normally takes her midodrine for her low blood pressure but states she is normally complaint but states she has not taken it earlier this AM - pt now in the ED, is alert and oriented and has noted stable vitals with BP of 102/71 and otherwise stable vitals - pt otherwise denies any other symptoms at this time - pt states she is biological male and has sexual reassignment surgery and is now female Past Medical History: low blood pressure Past Surgical History: spine fusion, R shoulder surgery, sexual reassignment surgery(penis to vagina) Social History: Denies ETOH, smoking, and drug use. Medications: midodrine Allergies: benzodiazepines REVIEW OF SYSTEMS: CONSTITUTIONAL: Denies acute: fever, diaphoresis, chills, HEAD: Denies acute: headache, photophobia Eyes: Denies acute: Double vision, vision loss, eye pain, eye discharge. EARS: Denies acute: tinnitus, hearing loss, ear discharge, ear pain, THROAT: Denies acute: sore throat, swelling, difficulty swallowing , pain with swallowing, change in voice. NECK: Denies acute: neck pain, neck swelling, stiff neck. HEART: Denies acute : chest pain, palpitations, LUNGS: Denies acute: SOB, wheezing, cough, hemoptysis ABDOMEN: Denies acute: abdominal pain, Nausea, Vomiting, diarrhea, melena , hematemesis, hematochezia SKIN: Denies acute: rash, redness, lesions, itchiness. EXTREMITIES: Denies acute: calf pain, numbness, tingling, weakness, denies pain in extremity. Denies acute: Low back pain. Neuro: Denies acute: focal neurological deficit, motor or sensory focal neurological deficit, tremors, seizure like activity, confusion, change in mental status, loss of bowel or bladder function, cauda equina like symptoms. : Denies acute: dysuria, hematuria, flank pain, increase in urinary frequency. PSYCH: Denies acute: hallucination, suicidal ideation, homicidal ideation. PHYSICAL EXAM: General: -----no---acute distress, awake and alert. Head: normocephalic, atraumatic. Neck: supple, trachea is midline, no swelling. Throat: Normal phonation. Eyes:, no erythema, no purulent discharge, no proptosis, no icterus. Heart: regular rate, regular rhythm, no significant murmur appreciated. Lungs: no apparent respiratory distress, Able to speak in full sentences. No wheezing, no rhonchi, no crackles. No stridors Clear to auscultation bilaterally. Abdomen: non tender to palpation, non distended, soft, no guarding, no rebound, + bowel sounds. Neuro: Awake, Alert, oriented to name, self, situation, follows commands GCS=15. Speech is normal. Skin: no petechia, no purpura, no cyanosis, non-pale, not jaundice. Lower extremities: --no - Pitting edema no deformity, no focal swelling, no calf TTP. Makes eye contact. moves all four extremities. Face: no apparent facial droop. ED COURSE: DISCLAIMER: This medical document was created using an electronic medical record system with voice recognition software and computerized dictation system. Although this document has been carefully reviewed, there might still be some phonetic and typographical errors. Occasional wrong-word or "sound-alike" substitutions may have occurred due to the inherent limitations of voice recognition software. These areas are purely typographical due to imperfections of the software programs and do not reflect any compromise in the patient's medical care. Please read the chart carefully and recognize, using context, where these substitutions have occurred. Chief Complaint: Dizziness Time Seen by MD: 16:04 Primary Care Provider: UNKNOWN Reviewed Notes: Allergies Allergies: Coded Allergies: Benzodiazepines (Verified Allergy, Unknown, 06/10/15) Midazolam (Verified Allergy, Unknown, 06/08/15) No Known Drug Allergy (Verified Allergy, Unknown, 02/02/24) Home Meds Active Scripts Levetiracetam (KEPPRA TABLET) 500 Mg Tb, 1000 MG PO BID, #60 Prov:ADAN FARIAS MD 01/06/17 Ondansetron (Zofran) 4 Mg Tab, 1 TAB PO Q8HR, #30 TAB Prov:ROSY MENJIVAR MD 06/12/15 [Pantoprazole Sodium Sesquihydr] 40 MG TB No Conflict Check, 40 MG PO BID, #60 Prov:ROSY MENJIVAR MD 06/12/15 Reported Medications Oxycodone Hcl (OxyCONTIN ER Tablet) 10 Mg Tb, 1 TAB PO TID, #60 TAB 07/06/23 Atorvastatin Calcium (ATORVASTATIN CALCIUM) 80 Mg Tab, 1 TAB PO DAILY 07/05/23 Baclofen (Baclofen) 10 Mg Tab, 10 MG PO BID for 30 Days, MG 10/10/21 Aripiprazole (Abilify Mycite) 10 Mg Tab, 10 MG PO QHS, TAB 10/10/21 Trazodone Hcl (Trazodone Hcl) 150 Mg Tab, 300 MG PO QHS, MG 10/10/21 Gabapentin (Gabapentin) 300 Mg Cap, 1 CAP PO TID, #90 CAP 5 Refills 10/10/21 Progesterone Micronized (PROGESTERONE) 200 Mg Cap, 200 MG PO HS 09/01/12 [Estrodial] 6 MG No Conflict Check, 5 MG IM QWEEKLY 09/01/12 Duloxetine Hcl (Cymbalta) 60 Mg Cap, 60 MG PO QHS 09/01/12 Information Source: Patient Mode of Arrival: EMS Past Medical History PAST MEDICAL HISTORY: Anxiety, COPD, High Lipids, Kidney Stones, Seizures Surgical History: Tonsillectomy Family History Family History: Reviewed,noncontributory to illness Social History Smoker: Cigarettes, Greater Than 1 Pack/Day Alcohol: Denies ETOH Use Drugs: Marijuana Lives In: Home Was a procedure done? Was a procedure done?: No X-Ray, Labs, Meds, VS Vital Signs Date Time Temp Pulse Resp B/P (MAP) Pulse Ox O2 Delivery O2 Flow Rate FiO2 09/09/24 19:20 57 14 99 Room Air 09/09/24 19:20 99.1 57 14 121/86 (98) 99 99.1 09/09/24 15:58 98.2 81 18 102/71 (81) 98 98.2 09/09/24 15:49 70 Lab Test 09/09/24 18:12 Range/Units White Blood Count 7.5 4.4-10.8 10^3/uL Red Blood Count 4.70 4.0-5.20 10^6/uL Hemoglobin 13.5 12.2-16.2 g/dL Hematocrit 40.5 36.0-46.0 % Mean Corpuscular Volume 86.2 80.0-100.0 fL Mean Corpuscular Hemoglobin 28.6 28.0-32.0 pg Mean Corpuscular Hemoglobin Concent 33.2 32.0-36.0 g/dL Red Cell Distribution Width 14.8 H 11.8-14.3 % Platelet Count 287 140-450 10^3/uL Mean Platelet Volume 7.8 6.9-10.8 fL Neutrophils (%) (Auto) 66.6 37.0-80.0 % Lymphocytes (%) (Auto) 24.2 10.0-50.0 % Monocytes (%) (Auto) 4.5 0.0-12.0 % Eosinophils (%) (Auto) 3.6 0.0-7.0 % Basophils (%) (Auto) 1.1 0.0-2.0 % Neutrophils # (Auto) 5.0 1.6-8.6 10 ^3/uL Lymphocytes # (Auto) 1.8 0.4-5.4 10 ^3/uL Monocytes # (Auto) 0.3 0-1.3 10 ^3/uL Eosinophils # (Auto) 0.3 0-0.8 10 ^3/uL Basophils # (Auto) 0.1 0-0.2 10 ^3/uL Nucleated Red Blood Cells 0.0 % Sodium Level 140 136-145 mmol/L Potassium Level 4.3 3.5-5.1 mmol/L Chloride Level 105 98-107 mmol/L Carbon Dioxide Level 29 20-31 mmol/L Anion Gap 6 5-15 Blood Urea Nitrogen 13 9-23 mg/dL Creatinine 1.23 H 0.550-1.02 mg/dL Glomerular Filtration Rate Calc 51 >90 mL/min BUN/Creatinine Ratio 10.6 10.0-20.0 Serum Glucose 94 74-106 mg/dL Lactic Acid Level 0.6 0.4-2.0 mmol/L Calcium Level 9.9 8.7-10.4 mg/dL Total Bilirubin 0.2 0.2-1.0 mg/dL Aspartate Amino Transferase (AST) 16 13-40 U/L Alanine Aminotransferase (ALT) 10 7-40 U/L Alkaline Phosphatase 60 46-116 U/L Troponin I High Sensitivity < 3 L </=34 ng/L Total Protein 6.8 5.7-8.2 g/dL Albumin 4.5 3.2-4.8 g/dL Current Medications Medications (Trade) Dose Ordered Sig/Jessica Route Start Time Stop Time Status Last Admin Sodium Chloride 1,000 ml @ 1,000 mls/hr Q1H ONCE IV 09/09/24 17:30 09/09/24 18:29 DC 09/09/24 19:20 [place] [id number] Ph: [phone] DIAGNOSTIC IMAGING Diagnostic Imaging Report : [id number] Signed PATIENT: JOSE BOWENCCT: [id number] UNIT: [id number] : 1965 LOC: ER ROOM / BED: / AGE / SEX: 58 / F ADM STATUS: REG ER SERVICE 22 ORDERING PHYSICIAN: MELECIO MONTELONGO DO PROCEDURE(s): CXRP - CHEST PORTABLE REASON: dizzy, hypotensive episode ORDER NUMBER(s): [id number], ACCESSION NUMBER(s): [id number] CHEST RADIOGRAPH Indication: dizzy, hypotensive episode Technique: Single frontal view of the chest was obtained Comparison: XY CHEST XRAY 1 VIEW on DOS: 07/05/23 FINDINGS: Lines and Tubes: None Lungs: No focal consolidation. Mild hyperinflation of the lungs. Pleura: No effusion. No pneumothorax. Cardiomediastinal contours: Unremarkable Bones: No acute osseous abnormality. IMPRESSION: No acute cardiopulmonary disease. Mild hyperinflation of the lungs. ATED BY: JENNIFER JORGENSEN DO DICTATED DATE/TIME: 09/09/241824 SIGNED BY: JENNIFER JORGENSEN DO SIGNED DATE/TIME: 07/12/25 1825 CC: Time of 1ST Reevaluation: 20:07 Reevaluation 1ST: Resolved Patient Education/Counseling: Diagnosis, Treatment Family Education/Counseling: No Family Present Comments Patient has history of hypotension on daily medications for it. Patient came here because it was a little lower than usual for him. Patient had associated dizziness with the hypotension episode at home. By the time he arrived to the ED all his vital signs were stable. We gave him some fluid hydration reassessed him. He is ambulating independently in the ED without any symptoms and requesting to be discharged home. SEPSIS Sepsis Screen Date sepsis recognized/suspect: Sep 09, 2024 Time Sepsis recognized/suspect: 1553 Recent Procedure: No On Antibiotic Therapy: No Respiratory Rate >20: No Heart Rate >90: No Temp<36 C (96.8 F) or >38.3 C: No SBP <90 or MAP <65 mmHG: No New Acute Mental Status Change: No Is the patient on CPAP, BIPAP,: No Physician Orders Project Manager/Design Manager (09/09/24 ) Orthostatic Vital Signs (09/09/24 ) Urinalysis (09/09/24 17:23) Chest Portable (09/09/24 17:23) Electrocardigram (09/09/24 17:23) Vital Signs Date Time Temp Pulse Resp B/P (MAP) Pulse Ox O2 Delivery O2 Flow Rate FiO2 09/09/24 19:20 57 14 99 Room Air 09/09/24 19:20 99.1 57 14 121/86 (98) 99 99.1 09/09/24 15:58 98.2 81 18 102/71 (81) 98 98.2 09/09/24 15:49 70 Laboratory Tests Test 09/09/24 18:12 Lactic Acid Level 0.6 mmol/L (0.4-2.0) White Blood Count 7.5 10^3/uL (4.4-10.8) Medications Medications Dose Ordered Sig/Jessica Route Start Time Stop Time Status Last Admin Dose Admin Sodium Chloride 1,000 ml @ 1,000 mls/hr Q1H ONCE IV 09/09/24 17:30 09/09/24 18:29 DC 09/09/24 19:20 Departure 1 Departure Time of Disposition: 20:06 Impression: Primary Impression: Hypotensive episode Disposition: 01 HOME / SELF CARE / HOMELESS Condition: Stable Additional Instructions: Additional instructions: You MUST follow-up with your primary care/family doctor in 1 to 2 days. If you are unable to see your primary care/family doctor, please return to our emergency room for re-assessment and re-evaluation in 1 to 2 days. Return to the emergency room here in our facility or to the nearest ER [facility] if your symptoms change or worsen. CONSULTATIONS: you MUST Follow-up for consultation as soon as possible with: -cardiology in 1-2 days. Please call for appointment You MUST call the consultants office yourself to make an appointment. You may need to arrange that through your insurance and/or your primary/family doctor. If you are unable to see the biometrics consultant in 1 to 2 days, you must return to our emergency room (or any other ER of your choice) for re-assessment and re- evaluation. Adequate fluid hydration. Monitoring blood pressure 3 times a day. Discharged With: Self Critical Care Note Critical Care Time?: No Heart Score Heart Score: Heart Score Response (Comments) Value History N/A 0 EKG N/A 0 Age N/A 0 Risk Factors N/A 0 Troponin N/A 0 Total 0 I personally scribed for MELECIO MONTELONGO DO ([email or web address]) on 09/09/24 at 16:57. Electronically submitted by Maisha Ladd ([employer]). I personally scribed for MELECIO MONTELONGO DO ([email or web address]) on 09/09/24 at 19:29. Electronically submitted by Maisha Ladd ([employer]). I personally scribed for MELECIO MONTELONGO DO ([email or web address]) on 09/09/24 at 20:01. Electronically submitted by Maisha Ladd ([employer]). I personally scribed for MELECIO MONTELONGO DO ([email or web address]) on 09/09/24 at 21:40. Electronically submitted by Maisha Ladd ([employer]). MELECIO MONTELONGO DO Sep 09, 2024 16:57
--- NOTE | 2024-09-09 18:27 | DVH ---
CHEST RADIOGRAPH Indication: dizzy, hypotensive episode Technique: Single frontal view of the chest was obtained Comparison: XY CHEST XRAY 1 VIEW on DOS: 07/05/23 FINDINGS: Lines and Tubes: None Lungs: No focal consolidation. Mild hyperinflation of the lungs. Pleura: No effusion. No pneumothorax. Cardiomediastinal contours: Unremarkable Bones: No acute osseous abnormality. IMPRESSION: No acute cardiopulmonary disease. Mild hyperinflation of the lungs.
[2024-09-09 18:36] LABS: Hematocrit 40.5 % (36.0-46.0); Hemoglobin 13.5 g/dL (12.2-16.2); Mean Corpuscular Hemoglobin 28.6 pg (28.0-32.0); Mean Corpuscular Volume 86.2 fL (80.0-100.0); Nucleated Red Blood Cells % 0.0 %
[2024-09-09 18:51] LABS: Alanine Aminotransferase 10 U/L (7-40); Albumin 4.5 g/dL (3.2-4.8); Alkaline Phosphatase 60 U/L (46-116); Anion Gap 6 (5-15); BUN/Creatinine Ratio 10.6 (10.0-20.0); Blood Urea Nitrogen 13 mg/dL (9-23); Calcium 9.9 mg/dL (8.7-10.4); Carbon Dioxide 29 mmol/L (20-31); Chloride 105 mmol/L (98-107); Glucose 94 mg/dL (74-106); Potassium 4.3 mmol/L (3.5-5.1); Sodium 140 mmol/L (136-145); Total Protein 6.8 g/dL (5.7-8.2)
[2024-09-09 18:53] LABS: Bilirubin, Total 0.2 mg/dL (0.2-1.0)
[2024-09-09 19:20] VITALS: BP 121/86; PULSE 57; RESP 14; TEMP 99.1; O2SAT 99
[2024-09-09] MEDS: SODIUM CHLORIDE 0.9% 1,000 ML IV ONE (19:20)
--- NOTE | 2024-09-11 12:56 | ECG ---
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
== END 2024-09-09 20:23 | disposition home or self-care (01) ==
LOC: EDBD 15:49 → ER 15:49
DX: I95.9 Hypotension, unspecified (principal); R42 Dizziness and giddiness; F41.9 Anxiety disorder, unspecified; R78.5 Finding of other psychotropic drug in blood; J44.9 Chronic obstructive pulmonary disease, unspecified; F17.210 Nicotine dependence, cigarettes, uncomplicated; Z90.89 Acquired absence of other organs; Z79.899 Other long term (current) drug therapy; Z88.8 Allergy status to other drugs, medicaments and biological substances
CPT/HCPCS: 36415; 71045; 80053; 82947; 83605; 84484; 85025; 93005; 96360; 99285; J7030